=== PATIENT | female | born 2000 | race African-American/Black ===

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

== ENCOUNTER 2021-01-14 19:27 | Emergency (ER) | payer OTHER ==
[2021-01-14 19:45] VITALS: BP 123/77; PULSE 65; TEMP 98.7; BMI 38.2
[2021-01-14 21:05] LABS: PH,URINE 5.5 (5.0-8.0); URINE APPEARANCE CLEAR; URINE BILIRUBIN NEGATIVE (NEGATIVE); URINE COLOR YELLOW; URINE GLUCOSE (UA) NEGATIVE (NEGATIVE); URINE KETONE NEGATIVE (NEGATIVE); URINE LEUK ESTERASE NEGATIVE (NEGATIVE); URINE NITRITE NEGATIVE (NEGATIVE); URINE PROTEIN NEGATIVE (NEGATIVE)
[2021-01-14 21:07] LABS: HCG,QUALITATIVE URINE Negative
[2021-01-14 22:44] LABS: HIV INTERPRETATION NEGATIVE (NEGATIVE)
== END 2021-01-14 21:59 | disposition home or self-care (01) ==
LOC: JERFT 19:27
DX: N76.0 Acute vaginitis (principal)
CPT/HCPCS: 36415; 81003; 84703; 86317; 86706; 86780; 86803; 87077; 87086; 87340; 87389; 99283-25

== ENCOUNTER 2022-01-17 10:45 | Emergency (ER) | payer OTHER ==
[2022-01-17 11:20] VITALS: BMI 24.5
[2022-01-17] MEDS ORDERED: ACETAMINOPHEN 500 MG TABLET (FP) PO ONE (11:51)
[2022-01-17] MEDS ORDERED: ALBUTEROL SO4 2.5/IPRATROPIUM 0.5 INH SOL 3 ML VIAL.NEB. NEB ONE (12:34)
[2022-01-17] MEDS: ALBUTEROL SO4 2.5/IPRATROPIUM 0.5 INH SOL 3 ML VIAL.NEB. NEB SCH ×4 (12:45→13:12)
[2022-01-17] MEDS ORDERED: ACETAMINOPHEN 500 MG TABLET (FP) ONE (12:45)
[2022-01-17 13:16] LABS: BASO % 0.3 % (0-2.0); EOS % 1.7 % (0-4.5); HEMATOCRIT 36.6 % (32.4-45.2); HEMOGLOBIN 12.5 GM/dL (10.7-15.3); LYMPH % 17.6 % (8-40); MCHC 34.2 g/dl (32.0-36.0); MEAN CELL VOLUME 84.9 fl (80-96); MEAN PLT VOLUME 8.2 fl (7.5-11.1); MONO % 13.5 % (3.8-10.2); NEUT % 66.9 % (42.8-82.8); PH,URINE 6.5 (5.0-8.0); PLATELET COUNT 268 10^3/uL (134-434); RBC 4.32 M/mm3 (3.60-5.2); RDW 13.2 % (11.6-15.6); URINE APPEARANCE CLEAR; URINE BILIRUBIN NEGATIVE (NEGATIVE); URINE COLOR YELLOW; URINE GLUCOSE (UA) NEGATIVE (NEGATIVE); URINE KETONE 3+ (NEGATIVE); URINE LEUK ESTERASE NEGATIVE (NEGATIVE); URINE NITRITE NEGATIVE (NEGATIVE); URINE PROTEIN TRACE (NEGATIVE); WHITE BLOOD COUNT 5.7 K/mm3 (4.0-10.0)
[2022-01-17 13:18] LABS: HCG,QUALITATIVE URINE Positive
[2022-01-17 13:31] LABS: CALCIUM 8.7 mg/dL (8.5-10.1)
[2022-01-17 13:32] LABS: BLOOD UREA NITROGEN 5.9 mg/dL (7-18)
[2022-01-17 13:35] LABS: CREATININE 0.8 mg/dL (0.55-1.3)
[2022-01-17 17:20] VITALS: RESP 18
[2022-01-17 17:47] VITALS: BP 120/71; PULSE 97; TEMP 98.1
== END 2022-01-17 17:50 | disposition home or self-care (01) ==
LOC: JER 10:45
PROC: 3E0F7GC Introduction of Other Therapeutic Substance into Respiratory Tract, Via Natural or Artificial Opening (ICD-10-PCS; principal; 2022-01-17)
DX: O26.851 Spotting complicating pregnancy, first trimester (principal); J06.9 Acute upper respiratory infection, unspecified; Z3A.08 8 weeks gestation of pregnancy
CPT/HCPCS: 0241U-QW; 36415; 76817-TC; 80048; 81003; 84702; 84703; 85025; 87086; 99284-25

== ENCOUNTER 2022-01-29 05:33 | Emergency (ER) | payer OTHER ==
[2022-01-29 05:44] VITALS: BP 116/69; PULSE 102; RESP 18; TEMP 98.5; BMI 36.8
[2022-01-29] MEDS ORDERED: ACETAMINOPHEN 1000 MG/100 ML BAG IVPB ONE (05:55)
[2022-01-29 08:12] LABS: BASO % 0.3 % (0-2.0); EOS % 1.7 % (0-4.5); HEMATOCRIT 33.5 % (32.4-45.2); HEMOGLOBIN 11.8 GM/dL (10.7-15.3); LYMPH % 18.2 % (8-40); MCH 29.7 pg (25.7-33.7); MCHC 35.1 g/dl (32.0-36.0); MEAN CELL VOLUME 84.6 fl (80-96); MEAN PLT VOLUME 8.2 fl (7.5-11.1); MONO % 9.2 % (3.8-10.2); NEUT % 70.6 % (42.8-82.8); PLATELET COUNT 319 10^3/uL (134-434); RBC 3.96 M/mm3 (3.60-5.2); RDW 12.9 % (11.6-15.6); WHITE BLOOD COUNT 10.1 K/mm3 (4.0-10.0)
[2022-01-29 08:34] LABS: ALBUMIN 3.5 g/dl (3.4-5.0); BLOOD UREA NITROGEN 6.9 mg/dL (7-18); CALCIUM 9.2 mg/dL (8.5-10.1)
[2022-01-29 08:37] LABS: CREATININE 0.7 mg/dL (0.55-1.3)
[2022-01-29 08:39] LABS: BILIRUBIN,TOTAL 0.5 mg/dL (0.2-1); TOT PROT 7.3 g/dl (6.4-8.2)
[2022-01-29 09:02] LABS: EPI CELLS 3 /uL (0-25.1); HYALINE CASTS 1 /uL (0-3.1); PH,URINE 6.5 (5.0-8.0); URINE APPEARANCE CLEAR; URINE BACTERIA 15 /uL (0-1359); URINE BILIRUBIN NEGATIVE (NEGATIVE); URINE COLOR YELLOW; URINE GLUCOSE (UA) NEGATIVE (NEGATIVE); URINE KETONE NEGATIVE (NEGATIVE); URINE LEUK ESTERASE TRACE (NEGATIVE); URINE NITRITE NEGATIVE (NEGATIVE); URINE PROTEIN NEGATIVE (NEGATIVE); URINE RBC 1576 /uL (0-23.9); URINE WBC 6 /uL (0-25.8)
[2022-01-29] MEDS ORDERED: KETOROLAC TROMETHAMINE 30 MG/1 ML VIAL IVPUSH ONE (10:45)
[2022-01-29] MEDS ORDERED: KETOROLAC TROMETHAMINE 30 MG/1 ML VIAL ONE (10:49)
== END 2022-01-29 11:26 | disposition home or self-care (01) ==
LOC: JER 05:33
PROC: 3E0333Z Introduction of Anti-inflammatory into Peripheral Vein, Percutaneous Approach (ICD-10-PCS; principal; 2022-01-29)
PROC: 3E0333Z Introduction of Anti-inflammatory into Peripheral Vein, Percutaneous Approach (ICD-10-PCS; 2022-01-29)
DX: O26.851 Spotting complicating pregnancy, first trimester (principal); Z3A.01 Less than 8 weeks gestation of pregnancy
CPT/HCPCS: 36415; 76817-TC; 80053; 81003; 84702; 84703; 85025; 87086; 99284-25